=== PATIENT | female | born 1975 ===

== ENCOUNTER 2019-09-08 14:25 | Outpatient (CLI) | payer OTHER ==
[~2019-09-08 14:25] MED LIST: CIPRO500 MG PO; CORTISPORIN EAR10 M2 OT; DECADRON P4 MG/ML-1M IH; DICLOFENAC SODI50 MG PO; FLONASE16 GM NASAL; MAXITROL EYE O3.5 GM OP; PROTONIX40 MG PO; TESSALON200 MG PO; TOBREX5 ML OP; TORADOL60 MG IM; XYZAL5 MG PO; ZANTAC300 MG PO; ZITHROMAX500 MG PO; ZYRTEC10 MG PO
== END 2019-09-08 15:00 | disposition home or self-care (01) ==
LOC: LAB 14:25
DX: R05 Cough (principal); J11.1 Influenza due to unidentified influenza virus with other respiratory manifestations

== ENCOUNTER 2019-09-25 10:36 | Outpatient (CLI) | payer OTHER | END 2019-09-25 10:43 | disposition home or self-care (01) | LOC: LAB 10:36 | DX: J11.1 Influenza due to unidentified influenza virus with other respiratory manifestations (principal); R05 Cough ==

== ENCOUNTER → 2020-02-16 | Outpatient (CLI) | payer OTHER | END | disposition home or self-care (01) | LOC: MAMO-SONO 09:45 | PROVIDERS: ATTEND Obstetrics & Gynecology Gynecology | DX: Z12.31 Encounter for screening mammogram for malignant neoplasm of breast (principal); N60.11 Diffuse cystic mastopathy of right breast; N60.12 Diffuse cystic mastopathy of left breast; R10.2 Pelvic and perineal pain ==

== ENCOUNTER 2020-02-29 06:29 | Outpatient (CLI) | payer OTHER | END 2020-02-29 15:00 | disposition home or self-care (01) | LOC: LAB 06:29 | PROVIDERS: ATTEND Obstetrics & Gynecology Gynecology | DX: N39.0 Urinary tract infection, site not specified (principal); E78.49 Other hyperlipidemia; E03.8 Other specified hypothyroidism; M81.0 Age-related osteoporosis without current pathological fracture; N91.4 Secondary oligomenorrhea ==

== ENCOUNTER → 2020-03-26 14:24 | Outpatient (CLI) | payer OTHER ==
[~2020-03-26 14:24] MED LIST changes: +FLONASE ALLERG9.9 ML NASAL; +GUAIFENESIN400 MG PO; +KETO10TA2 PO
== END | disposition home or self-care (01) ==
LOC: CERTIFICAD 14:24
PROVIDERS: ATTEND Family Medicine
DX: Z11.1 Encounter for screening for respiratory tuberculosis (principal)

== ENCOUNTER 2020-04-30 06:00 | Outpatient (CLI) | payer OTHER ==
[~2020-04-30 06:00] MED LIST changes: -FLONASE ALLERG9.9 ML NASAL; -GUAIFENESIN400 MG PO; -KETO10TA2 PO
== END 2020-04-30 15:00 | disposition home or self-care (01) ==
LOC: PPH VACUNA 06:00
DX: Z23 Encounter for immunization (principal)

== ENCOUNTER 2020-05-09 09:51 | Emergency (ER) | payer OTHER ==
[~2020-05-09] VITALS: Ht 160 cm; Wt 72.6 kg
[2020-05-09] MEDS ORDERED: KETO10TA2 PO (15:35)
[2020-05-09] MEDS ORDERED: GUAIFENESIN400 MG PO (15:35)
[2020-05-09] MEDS ORDERED: FLONASE ALLERG9.9 ML NASAL (15:35)
== END 2020-05-09 15:48 | disposition home or self-care (01) ==
LOC: ER 09:51
DX: J06.9 Acute upper respiratory infection, unspecified (principal); Z03.818 Encounter for observation for suspected exposure to other biological agents ruled out

== ENCOUNTER 2020-08-13 14:01 | Outpatient (CLI) | payer OTHER ==
[~2020-08-13 14:01] MED LIST changes: +FLONASE ALLERG9.9 ML NASAL; +GUAIFENESIN400 MG PO; +KETO10TA2 PO
== END 2020-08-13 14:02 | disposition home or self-care (01) ==
LOC: PPH VACUNA 14:01
DX: Z23 Encounter for immunization (principal)

== ENCOUNTER 2021-05-12 08:00 | Outpatient (CLI) | payer OTHER | END 2021-05-12 08:30 | disposition home or self-care (01) | LOC: PPH VACUNA 08:00 | PROVIDERS: ATTEND Emergency Medicine Pediatric Emergency Medicine | DX: Z23 Encounter for immunization (principal) ==

== ENCOUNTER 2021-05-22 14:18 | Outpatient (CLI) | payer OTHER | END 2021-05-22 14:26 | disposition home or self-care (01) | LOC: MAMO-SONO 14:18 | PROVIDERS: ATTEND Obstetrics & Gynecology Gynecology | DX: N60.11 Diffuse cystic mastopathy of right breast (principal); N60.12 Diffuse cystic mastopathy of left breast ==

== ENCOUNTER 2021-06-03 06:28 | Outpatient (CLI) | payer OTHER | END 2021-06-03 06:29 | disposition home or self-care (01) | LOC: LAB 06:28 | PROVIDERS: ATTEND Obstetrics & Gynecology Gynecology | DX: N39.0 Urinary tract infection, site not specified (principal); N91.4 Secondary oligomenorrhea; E78.49 Other hyperlipidemia; E03.8 Other specified hypothyroidism; M81.0 Age-related osteoporosis without current pathological fracture ==

== ENCOUNTER 2021-08-26 08:00 | Outpatient (CLI) | payer OTHER ==
[2021-09-10] MEDS ORDERED: DICLOFENAC POTA50 MG PO (14:05)
== END 2021-08-26 08:30 | disposition home or self-care (01) ==
LOC: PPH VACUNA 08:00
PROVIDERS: ATTEND Emergency Medicine Pediatric Emergency Medicine
DX: Z23 Encounter for immunization (principal)

== ENCOUNTER 2021-08-29 12:01 | Outpatient (CLI) | payer OTHER | END 2021-08-29 15:00 | disposition home or self-care (01) | LOC: LAB 12:01 | DX: Z20.828 Contact with and (suspected) exposure to other viral communicable diseases (principal) ==

== ENCOUNTER 2021-10-07 13:57 | Outpatient (CLI) | payer OTHER ==
[~2021-10-07 13:57] MED LIST changes: +DICLOFENAC POTA50 MG PO
== END 2021-10-07 14:10 | disposition home or self-care (01) ==
LOC: RAD 13:57
PROVIDERS: ATTEND Physical Medicine & Rehabilitation
DX: M77.11 Lateral epicondylitis, right elbow (principal); S93.401D Sprain of unspecified ligament of right ankle, subsequent encounter; M25.261 Flail joint, right knee

== ENCOUNTER → 2021-10-23 10:32 | Outpatient (CLI) | payer OTHER | END | disposition home or self-care (01) | LOC: LAB 10:32 | DX: E78.5 Hyperlipidemia, unspecified (principal); N91.2 Amenorrhea, unspecified ==

== ENCOUNTER 2021-10-23 12:32 | Outpatient (CLI) | payer OTHER | END 2021-10-23 12:43 | disposition home or self-care (01) | LOC: SONOGRAMA 12:32 | PROVIDERS: ATTEND Obstetrics & Gynecology Gynecology | DX: R10.2 Pelvic and perineal pain (principal) ==

== ENCOUNTER 2021-11-12 10:40 | Outpatient (CLI) | payer OTHER | END 2021-11-12 10:47 | disposition home or self-care (01) | LOC: MRI 10:40 | PROVIDERS: ATTEND Physical Medicine & Rehabilitation | DX: S93.401D Sprain of unspecified ligament of right ankle, subsequent encounter (principal) | CPT/HCPCS: 73721 ==

== ENCOUNTER 2021-12-23 07:24 | Emergency (ER) | payer OTHER ==
[~2021-12-23] VITALS: Ht 170.2 cm; Wt 65.8 kg
== END 2021-12-23 10:46 | disposition home or self-care (01) ==
LOC: ER 07:24
DX: B34.9 Viral infection, unspecified (principal); Z20.822 Contact with and (suspected) exposure to COVID-19